=== PATIENT | female | born 1955 | race Caucasian/White ===

== ENCOUNTER → 2017-06-08 11:08 | Outpatient (CLI) | payer OTHER ==
[~2017-06-08 11:08] MED LIST: ANASTROZOLE1 MG PO; CALTRATE 600 +1 EACH PO; CELEBREX100 MG PO; COZAAR25 MG PO; ELAVIL PO; ROBAXIN500 MG PO; VITAMIN D400 UNI5 PO
== END | disposition home or self-care (01) ==
LOC: LAB 11:08
DX: N85.00 Endometrial hyperplasia, unspecified (principal); N39.0 Urinary tract infection, site not specified; D64.9 Anemia, unspecified; Z01.818 Encounter for other preprocedural examination; R79.89 Other specified abnormal findings of blood chemistry

== ENCOUNTER 2017-06-09 09:30 | Inpatient (IN) | payer OTHER ==
[~2017-06-09] VITALS: Ht 149.9 cm; Wt 59.0 kg
[2017-06-16] MEDS ORDERED: COLACE100 MG PO (09:44)
[2017-06-16] MEDS ORDERED: ULTRACET PO (09:44)
== END 2017-06-16 09:57 | DRG 743 ==
LOC: EDUNIT# 09:30 → SURH 06-15 03:00 → O/R 06-15 06:22 → SURH 06-15 09:30 → OB/GYN 06-15 18:36
PROVIDERS: Obstetrics & Gynecology Gynecologic Oncology
PROC: 0UT24ZZ Resection of Bilateral Ovaries, Percutaneous Endoscopic Approach (ICD-10-PCS; 2017-06-15)
PROC: 0UT74ZZ Resection of Bilateral Fallopian Tubes, Percutaneous Endoscopic Approach (ICD-10-PCS; 2017-06-15)
PROC: 0UT94ZZ Resection of Uterus, Percutaneous Endoscopic Approach (ICD-10-PCS; principal; 2017-06-15 03:00)
DX: D25.1 Intramural leiomyoma of uterus (principal); D25.2 Subserosal leiomyoma of uterus; D05.81 Other specified type of carcinoma in situ of right breast; I10 Essential (primary) hypertension; N84.0 Polyp of corpus uteri; N72 Inflammatory disease of cervix uteri; N83.292 Other ovarian cyst, left side; N83.291 Other ovarian cyst, right side

== ENCOUNTER 2017-06-20 12:09 | Outpatient (CLI) | payer OTHER ==
[~2017-06-20 12:09] MED LIST changes: +COLACE100 MG PO; +ULTRACET PO
== END 2017-06-20 12:28 | disposition home or self-care (01) ==
LOC: TOM 12:09
DX: G43.909 Migraine, unspecified, not intractable, without status migrainosus (principal)

== ENCOUNTER 2020-07-15 09:40 | Outpatient (CLI) | payer OTHER | END 2020-07-15 09:56 | disposition home or self-care (01) | LOC: RAD 09:40 | PROVIDERS: ATTEND Internal Medicine Cardiovascular Disease | DX: R10.9 Unspecified abdominal pain (principal) ==